=== PATIENT | female | born 1950 | race Caucasian/White ===

== ENCOUNTER 2017-11-11 09:25 | Inpatient (IN) ==
[2017-11-09 10:42] LABS: Appearance,Urine CLEAR; Bilirubin,Urine NEG (NEG); Color,Urine YELLOW; Glucose,Urine (UA) NEGATIVE (NEG); Leukocyte Esterase,Urine NEG /uL (NEG); Protein,Urine NEG (NEG); Urine Blood NEG mg/dL (<0.03); Urobilinogen,Urine NEG (NEG)
[2017-11-09 11:35] LABS: Basophils # (Auto) 0 K/mcL (0.0-0.3); Basophils % (Auto) 0.4 % (0.0-2.0); Eosinophils # (Auto) 0.1 K/mcL (0.0-0.7); Granulocytes % (Auto) 62.1 % (38.0-78.0); Lymphocytes # (Auto) 1.3 K/mcL (1.5-4.8); Lymphocytes % (Auto) 24.5 % (15.5-49.0); Mean Cell Volume 90.9 fL (80.0-100.0); Mean Corpuscular HGB Conc 33.2 g/dL (31.0-36.0); Mean Corpuscular Hemoglobin 30.2 pg (26.0-34.0); Monocytes # (Auto) 0.6 K/mcL (0.1-0.9); Platelet Count 172 K/mcL (140-440)
[2017-11-09 11:59] LABS: Blood Urea Nitrogen 11 mg/dl (8-23)
[~2017-11-11 09:25] MED LIST: 0.9 % SODIUM CHLORIDE 9 ML, KETOROLAC 30 MG, ROPIVACAINE HCL/PF 49.5 ML, EPINEPHrine 0.... IJ SCH; CELECOXIB 200 MG CAPSULE PO SCH; PREGABALIN 75 MG CAPSULE PO SCH; ceFAZolin 1 GM VIAL IV SCH; oxyCODONE 10 MG TAB.ER.12H PO SCH
[2017-11-11] MEDS ORDERED: MEPERIDINE 50 MG/ML INJECTION IM PRN (12:29)
[2017-11-11] MEDS ORDERED: PROMETHAZINE 25 MG/ML VIAL IV PRN ×2 (12:29→15:04)
[2017-11-11] MEDS ORDERED: BENZOCAINE/MENTHOL 1 LOZENGE PO PRN ×2 (12:29→15:24)
[2017-11-11] MEDS ORDERED: PROMETHAZINE 25 MG/ML VIAL IM PRN (12:29)
[2017-11-11] MEDS ORDERED: fentaNYL 100 MCG/2 ML VIAL IV PRN ×2 (12:29→15:04)
[2017-11-11] MEDS ORDERED: NALOXONE HCL 0.4 MG/ML VIAL IV PRN (12:29)
[2017-11-11] MEDS ORDERED: METHOCARBAMOL 1,000 MG/10 ML VIAL IV PRN ×2 (12:29→15:04)
[2017-11-11] MEDS ORDERED: ACETAMINOPHEN 1,000 MG/100 ML BOTTLE IV ONE (12:29)
[2017-11-11] MEDS ORDERED: LACTATED RINGERS 250 ML IV PRN (12:29)
[2017-11-11] MEDS ORDERED: FLUMAZENIL 0.1 MG/ML ML IV PRN (12:29)
[2017-11-11] MEDS ORDERED: IPRATROPIUM/ALBUTEROL 3 ML AMPUL.NEB NEB PRN ×2 (12:29→15:04)
[2017-11-11] MEDS ORDERED: LACTATED RINGERS 1,000 ML IV SCH ×2 (12:30→15:15)
[2017-11-11] MEDS ORDERED: PHENYLEPHRINE 10 MG/ML VIAL IV ONE (13:45)
[2017-11-11] MEDS ORDERED: ROPIVACAINE HCL/PF 30 ML VIAL IJ ONE (13:45)
[2017-11-11] MEDS ORDERED: ONDANSETRON 4 MG/2 ML VIAL IV ONE (13:45)
[2017-11-11] MEDS ORDERED: KETAMINE 100 MG/ML ML IV ONE (13:45)
[2017-11-11] MEDS ORDERED: TRANEXAMIC ACID 1,000 MG/10 ML VIAL IV ONE ×2 (13:45→15:24)
[2017-11-11] MEDS ORDERED: fentaNYL 100 MCG/2 ML VIAL IV ONE (13:45)
[2017-11-11] MEDS ORDERED: MIDAZOLAM 2 MG/2 ML VIAL IV ONE (13:45)
[2017-11-11] MEDS ORDERED: LIDOCAINE HCL/PF 100 MG/5 ML SYRINGE IV ONE (13:45)
[2017-11-11] MEDS ORDERED: PROPOFOL 200 MG/20 ML VIAL IV ONE (13:45)
[2017-11-11] MEDS ORDERED: GLYCOPYRROLATE 0.2 MG/ML VIAL IV ONE (13:45)
[2017-11-11] MEDS ORDERED: ePHEDrine 50 MG/ML AMPUL IV ONE (13:45)
[2017-11-11] MEDS ORDERED: KETOROLAC 15 MG/ML VIAL IV PRN (15:04)
[2017-11-11] MEDS ORDERED: ONDANSETRON 4 MG/2 ML VIAL IV PRN ×2 (15:04→15:24)
[2017-11-11] MEDS ORDERED: MEPERIDINE 25 MG/ML SYRINGE IV PRN (15:04)
[2017-11-11] MEDS ORDERED: BISACODYL 10 MG SUPP.RECT PR PRN (15:24)
[2017-11-11] MEDS ORDERED: POLYETHYLENE GLYCOL 3350 17 GM PACKET PO PRN (15:24)
[2017-11-11] MEDS ORDERED: MAGNESIUM HYDROXIDE 30 ML ORAL.SUSP PO PRN (15:24)
[2017-11-11] MEDS ORDERED: HYDROmorphone 2 MG/ML VIAL IV PRN (15:24)
[2017-11-11] MEDS ORDERED: FLEETS ADULT ENEMA PR PRN (15:24)
--- NOTE | 2017-11-11 15:24 | Brief Operative Note ---
Date of procedure: 11/11/17 Pre-op diagnosis: R knee severe DJD Post-op diagnosis: same Procedure: Right robotic assisted total knee arthroplasty Grafts/Implants: Yes ([place] Triathlon CR 2 femur, 3 tibia, 11 CR insert, 33 patella) Anesthesia: GLMA Findings: severe arthritis Complications: none Surgeon: Jose F Walker Fabrication Manager: Brandon Jimenes Specimens Removed/Pathology: none sent Condition: stable Disposition: PACU
--- NOTE | 2017-11-11 16:37 | Operative Note ---
DATE OF OPERATION: 11/11/2017 PREOPERATIVE DIAGNOSIS: Right knee severe osteoarthritis. POSTOPERATIVE DIAGNOSIS: Right knee severe osteoarthritis. PROCEDURE PERFORMED: Right robotic-assisted total knee arthroplasty placing a Oswaldo Triathlon size 2 cruciate retaining femoral component, size 3 tibial baseplate, 11 mm X3 tibial insert with a 33 mm patellar button. SURGEON: Jose F Walker MD MELTER SUPERVISOR OPEN HEARTH FURNACE: Daniel Jimenes PA-C ANESTHESIA: Spinal plus general. DRAINS: None. SPECIMENS: Bone cuts, which were discarded. BLOOD LOSS: 30 mL POSTOPERATIVE CONDITION: Stable. INDICATIONS FOR SURGERY: This is a 67-year-old female who has had longstanding worsening bilateral knee pain. Radiographs showed severe multi-compartment gghh-[id number] osteoarthritis. FINDINGS AT SURGERY: As above. Post implantation showed good overall limb alignment as well as stability, and patellar tracking. PROCEDURE IN DETAIL: The patient had been seen preoperatively and informed consent had been obtained after discussion of risks and benefits of surgery. Risks including, but not limited to, bleeding; infection, possibly requiring implant removal, prolonged IV antibiotics; injury to nerves, blood vessels other surrounding structures; anesthetic risks; incomplete or no resolution of symptoms; stiffness; swelling, instability, pain; DVT and pulmonary embolus risks; and the possibility of needing further revision surgery. She understood these risks and wished to proceed. Correct operative site was marked. The patient was taken to the operating room. General anesthesia induced after spinal anesthesia was given in preop holding. The right lower extremity was carefully prepped and draped in normal sterile fashion. A time-out was performed verifying patient name, operative site, and plan. Esmarch was used to exsanguinate the extremity and tourniquet was inflated to 350 mmHg. A midline incision was made with a scalpel through skin and subcutaneous tissue and then hemostasis obtained with Bovie cautery. IrriSept was irrigated and then a medial parapatellar arthrotomy made. Subperiosteal exposure was done of the anterior medial tibia. We then placed our femoral and tibial checkpoints. We removed the anterior horns of the menisci and removed fat pad and transected the ACL. Two stab incisions were made over the femur and two over the tibia and bicortical pins placed in each and the arrays connected. We then did our hip center of rotation check, as well as a green probe identifying medial and lateral malleoli of the ankle. We then used the green probe to double check our femoral and tibial checkpoints. Blue probe was used to do our mapping and then osteophytes were removed with a rongeur. We then checked our flexion, extension gaps. Implants were adjusted to give our gaps 17 mm on flexion and extension. Once we liked this, we used the robotic arm assistance to make our bone cuts. Once bone cuts were completed trials were placed. Patellar tracking was good, so we did have a few degrees of hyperextension with the 9 mm insert, so we did go up to 11. We opened implants. Trials were removed. IrriSept was irrigated. Antibiotic cement was mixed. We pulse lavaged with saline and then used the CO2 gun to clean the cancellous bone surfaces and then cemented the tibia followed by femur. Excess cement was removed and the trial insert was placed. The knee was taken into extension. This was held absolutely still. Patellar button was cemented as well. While cement was hardening, we injected pain cocktail as well as removed our checkpoints and our pins from the femur and tibia. Once cement had fully hardened, we removed the trial insert and injected pain cocktail in the pericapsular and subcutaneous tissues and then posterior capsule. We irrigated IrriSept again and impacted 11 insert. We then placed the knee in 45 degrees of flexion, We pulse lavaged with saline. Interrupted #2 FiberWire svliao-jz-cwhmoq were used around the superior quadrant of the patella, #1 Vicryl rpwhzb-an-cizupt around the inferior quadrant, running #1 Vicryl for patellar tendon and quad tendon. Final IrriSept irrigation was done and then Monocryl was used for subcutaneous and elvi for skin. Xeroform sterile dressing were applied. Tourniquet was released. The patient was awakened, extubated, and transferred to recovery in stable condition. ALEXIA:shad Job ID: [id number] Doc ID: [id number] Jose F Walker MD
--- NOTE | 2017-11-11 16:44 | XRay Report ---
CLINICAL INFORMATION: Post-op total knee. COMPARISON: None. FINDINGS: Total knee prostheses is anatomically aligned. No osseous abnormality. Periarticular soft tissue swelling seen. IMPRESSION: Negative Interpreted and Authenticated by: Valdez Herndon 11/11/17
[2017-11-11] MEDS: 0.9 % SODIUM CHLORIDE 1,000 ML IV SCH (17:42)
[2017-11-11] MEDS: KETOROLAC 30 MG/ML VIAL IV SCH ×2 (17:42→23:50)
[2017-11-11] MEDS ORDERED: SENNOSIDES 1 TABLET PO SCH (21:00)
[2017-11-11] MEDS: HYDROcodone/APAP 10/325MG TABLET PO PRN (21:24)
[2017-11-11] MEDS: ASPIRIN 325 MG ENTERIC COATED TABLET PO SCH (21:24)
[2017-11-11] MEDS: DOCUSATE SODIUM 100 MG CAPSULE PO SCH (21:24)
[2017-11-11] MEDS: ceFAZolin 1 GM VIAL IV SCH (21:28)
[2017-11-11] MEDS: 0.9 % SODIUM CHLORIDE 10 ML SYRINGE IV SCH (22:00)
[2017-11-12] MEDS: HYDROcodone/APAP 10/325MG TABLET PO PRN ×2 (02:01→08:37)
[2017-11-12] MEDS: 0.9 % SODIUM CHLORIDE 10 ML SYRINGE IV SCH ×2 (02:14→05:49)
[2017-11-12] MEDS: 0.9 % SODIUM CHLORIDE 1,000 ML IV SCH (03:07)
[2017-11-12] MEDS: KETOROLAC 30 MG/ML VIAL IV SCH ×2 (05:49→12:28)
[2017-11-12] MEDS: ceFAZolin 1 GM VIAL IV SCH (05:50)
[2017-11-12] MEDS ORDERED: PANTOPRAZOLE 40 MG TABLET PO SCH (07:30)
--- NOTE | 2017-11-12 07:49 | Discharge Summary ---
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 Chief Complaint: [] Discharge date: 11/12/17 Hospitalization Hospital course: Pt was admitted for a TKA. Pt underwent the procedure on the day of admission. Pt spent one night on the floor for IV pain meds, IV abx, and PT. Pt will attend out-pt PT, and f/u in 2 weeks. Will use ASA for DVT prophylaxis. Discharge diagnosis: R knee OA Exam - Exam Clean and dry: Yes Weight bearing status: as tolerated Ortho Discharge - TKA - Patient Instructions Diet: Regular Diet Activity: activity as tolerated Total Knee Protocol: For Total Knee: Start ROM ALYCIA with stationary bike or rocking chair. Work on gaining full extension of knee. Posterior dislocation precautions provided. Hip abductor strengthening and gait training instructions provided. Apply Cryocuff as instructed. Dressing Care: May shower in 2 days - Follow Up Plan Disposition: Home, Self-Care Prognosis: Good Rehab Potential: Good Overall status at discharge: patient is progressing back to baseline - Orders For Discharge Prescriptions: Aspirin [Ecotrin] 325 mg PO BID #30 tab.ec HYDROcodone/APAP 10/325MG [[place] 10-325Mg] 1 - 2 tab PO Q4HP PRN #90 tab PRN Reason: Pain Level 3-6 Pending Studies Resuscitation Status Full Code Diet Consistent Carbohydrate Diet Start ThuNov 11 1525 Hydrocodone Bitart/Acetaminophen ([place] 10/325mg) 0 tab PO Q4HP PRN PRN Reason: PAIN LEVEL 3-6 Last Admin: 11/12/17 02:01 Dose: 1 tab Admin: 11/11/17 21:24 Dose: 1 tab Aspirin (Ecotrin) 325 mg PO BID [facility] Last Admin: 11/11/17 21:24 Dose: 325 mg Docusate Sodium (Colace) 100 mg PO BID [facility] Last Admin: 11/11/17 21:24 Dose: 100 mg Ketorolac Tromethamine (Toradol) 30 mg IV Q6 [facility] Stop: 11/13/17 12:01 Last Admin: 11/12/17 05:49 Dose: 30 mg Admin: 11/11/17 23:50 Dose: 30 mg Admin: 11/11/17 17:42 Dose: 30 mg Ondansetron HCl (Zofran) 4 mg IV Q4HP PRN PRN Reason: Nausea And Vomiting Last Admin: 11/11/17 20:33 Dose: 4 mg Pantoprazole Sodium (Protonix) 40 mg PO QAMAC [facility] Last Admin: 11/12/17 06:48 Dose: 40 mg Senna (Senokot) 2 tab PO HS [facility] Last Admin: 11/11/17 21:27 Dose: Not Given Sodium Chloride (Saline Flush) 10 ml IV Q8 [facility] Last Admin: 11/12/17 05:49 Dose: 10 ml Admin: 11/12/17 02:14 Dose: 10 ml Admin: 11/11/17 22:00 Dose: Not Given Shift Summary 11/12/17 05:10 Shift Summary by Maya Amos Pt has slept most of the night. Has been up to the BR w/FWW & SBA; voiding well w/PVRs under 50cc. Has had pain meds twice, controlling her pain well. Biggest complaint tonight has been her chronic acid reflux since she didn't get her Nexium yesterday. She has been sleeping w/the HOB up, which has helped. Initialized on 11/12/17 05:10 - END OF NOTE
[2017-11-12] MEDS: DOCUSATE SODIUM 100 MG CAPSULE PO SCH (08:37)
[2017-11-12] MEDS: ASPIRIN 325 MG ENTERIC COATED TABLET PO SCH (08:37)
== END 2017-11-12 12:35 | disposition home or self-care (01) | DRG 470 ==
LOC: MEDSUR 09:25
PROVIDERS: ADMIT Orthopaedic Surgery; ATTEND Orthopaedic Surgery

== ENCOUNTER 2018-08-25 06:17 | Inpatient (IN) ==
[2018-08-17 12:11] LABS: Appearance,Urine CLEAR; Bilirubin,Urine NEG (NEG); Color,Urine STRAW; Glucose,Urine (UA) NEGATIVE (NEG); Leukocyte Esterase,Urine NEG /uL (NEG); Protein,Urine NEG (NEG); Specific Gravity,Urine 1.005 (1.000-1.035); Urine Blood NEG mg/dL (<0.03); Urobilinogen,Urine NEG (NEG)
[2018-08-17 13:01] LABS: Blood Urea Nitrogen 14 mg/dl (8-23)
[2018-08-17 13:10] LABS: Basophils # (Auto) 0 K/mcL (0.0-0.3); Basophils % (Auto) 0.5 % (0.0-2.0); Eosinophils # (Auto) 0.1 K/mcL (0.0-0.7); Eosinophils % (Auto) 1.5 % (0.0-7.0); Granulocytes % (Auto) 59.5 % (38.0-78.0); Lymphocytes # (Auto) 1.1 K/mcL (1.5-4.8); Lymphocytes % (Auto) 25.6 % (15.5-49.0); Mean Cell Volume 91.5 fL (80.0-100.0); Mean Corpuscular HGB Conc 33.3 g/dL (31.0-36.0); Monocytes # (Auto) 0.5 K/mcL (0.1-0.9); Monocytes % (Auto) 12.9 % (1.0-12.0); Platelet Count 179 K/mcL (140-440); Red Cell Distribution Width 13.4 % (11.5-14.5)
[2018-08-17 13:38] LABS: Estimated Average Glucose(eAG) 103 mg/dL; Hemoglobin A1C 5.2 % HGB (4.0-6.0)
[~2018-08-25 06:17] MED LIST changes: +IPRATROPIUM/ALBUTEROL 3 ML AMPUL.NEB NEB PRN; -ceFAZolin 1 GM VIAL IV SCH; +ceFAZolin 3 GM in DEXTROSE 5% IN WATER 50 ML IV SCH
[2018-08-25] MEDS ORDERED: PROPOFOL 200 MG/20 ML VIAL IV ONE (09:30)
[2018-08-25] MEDS ORDERED: LIDOCAINE HCL/PF 100 MG/5 ML SYRINGE IV ONE (09:30)
[2018-08-25] MEDS ORDERED: ONDANSETRON 4 MG/2 ML VIAL IV ONE (09:30)
[2018-08-25] MEDS ORDERED: DEXAMETHASONE 10 MG/ML VIAL IV ONE (09:30)
[2018-08-25] MEDS ORDERED: fentaNYL 100 MCG/2 ML VIAL IV ONE (09:30)
[2018-08-25] MEDS ORDERED: ROPIVACAINE HCL/PF 20 ML VIAL IJ ONE (09:30)
[2018-08-25] MEDS ORDERED: MIDAZOLAM 5 MG/5 ML VIAL IV ONE (09:30)
[2018-08-25] MEDS ORDERED: TRANEXAMIC ACID 1,000 MG/10 ML VIAL IV ONE (09:30)
[2018-08-25] MEDS ORDERED: ONDANSETRON 4 MG/2 ML VIAL IV PRN ×2 (10:45→11:10)
[2018-08-25] MEDS ORDERED: LACTATED RINGERS 250 ML IV PRN (10:45)
[2018-08-25] MEDS ORDERED: HYDROmorphone 2 MG/ML VIAL IV PRN ×2 (10:45→11:10)
[2018-08-25] MEDS ORDERED: LACTATED RINGERS 1,000 ML IV SCH (10:45)
[2018-08-25] MEDS ORDERED: FLUMAZENIL 0.1 MG/ML ML IV PRN (10:45)
[2018-08-25] MEDS ORDERED: NALOXONE HCL 0.4 MG/ML VIAL IV PRN (10:45)
[2018-08-25] MEDS ORDERED: IPRATROPIUM/ALBUTEROL 3 ML AMPUL.NEB NEB PRN (10:45)
[2018-08-25] MEDS ORDERED: BENZOCAINE/MENTHOL 1 LOZENGE PO PRN ×2 (10:45→11:10)
[2018-08-25] MEDS ORDERED: diphenhydrAMINE 50 MG/ML VIAL IV PRN (10:45)
[2018-08-25] MEDS ORDERED: ACETAMINOPHEN 1,000 MG/100 ML BOTTLE IV ONE (10:45)
[2018-08-25] MEDS ORDERED: PROMETHAZINE 25 MG/ML VIAL IV PRN (10:45)
[2018-08-25] MEDS ORDERED: MEPERIDINE 25 MG/ML SYRINGE IV PRN (10:45)
[2018-08-25] MEDS ORDERED: TRANEXAMIC ACID 1,000 MG/10 ML VIAL IV SCH (11:10)
[2018-08-25] MEDS ORDERED: POLYETHYLENE GLYCOL 3350 17 GM PACKET PO PRN (11:10)
[2018-08-25] MEDS ORDERED: MAGNESIUM HYDROXIDE 30 ML ORAL.SUSP PO PRN (11:10)
[2018-08-25] MEDS ORDERED: FLEETS ADULT ENEMA PR PRN (11:10)
[2018-08-25] MEDS ORDERED: DEXTROSE 31 GM ORAL.SUSP PO PRN (11:10)
[2018-08-25] MEDS ORDERED: BISACODYL 10 MG SUPP.RECT PR PRN (11:10)
[2018-08-25] MEDS ORDERED: DEXTROSE 50% 50 ML VIAL IV PRN (11:10)
--- NOTE | 2018-08-25 11:10 | Brief Operative Note ---
Date of procedure: 08/25/18 Pre-op diagnosis: Left knee severe DJD Post-op diagnosis: same Procedure: Left robotic assisted total knee arthroplasty Grafts/Implants: Yes ([place] Triathlon CR 3 femur, 3 tibia, 11mm insert, 33 patella) Anesthesia: spinal, GLMA Findings: severe arthritis Complications: none Surgeon: Jose F Walker Piece Jobber: Brandon Jimenes Estimated blood loss (cc): 30 Specimens Removed/Pathology: none sent Condition: stable Disposition: PACU
[2018-08-25] MEDS: fentaNYL 100 MCG/2 ML VIAL IV PRN ×2 (11:55→11:58)
--- NOTE | 2018-08-25 13:12 | XRay Report ---
HISTORY: Postop left knee arthroplasty FINDINGS: There is well-positioned total knee prosthesis. There is no fracture or abnormal soft tissue calcification around the joint. IMPRESSION: Well-positioned left knee prosthesis Interpreted and Authenticated by: Jaya Gandara 08/25/18
[2018-08-25] MEDS: KETOROLAC 15 MG/ML VIAL IV SCH ×3 (13:18→23:11)
[2018-08-25] MEDS: 0.9 % SODIUM CHLORIDE 1,000 ML IV SCH ×2 (13:19→23:01)
[2018-08-25] MEDS: INSULIN LISPRO 1 UNIT/0.01 ML UNIT SQ SCH ×3 (13:26→21:38)
--- NOTE | 2018-08-25 13:58 | Operative Note ---
DATE OF OPERATION: 08/25/2018 PREOPERATIVE DIAGNOSIS: Left knee severe osteoarthritis. POSTOPERATIVE DIAGNOSIS: Left knee severe osteoarthritis. PROCEDURE PERFORMED: Left robotic-assisted total knee arthroplasty placing a Oswaldo Triathlon size 3 cruciate retaining femoral component, size 3 tibial baseplate, 33 mm patellar button with an 11 mm tibial insert. SURGEON: Jose F Walker MD PHLEBOTOMY SUPERVISOR: Daniel Jimenes PA-C. The PA's assistance was required for the safe and efficient completion of the entire case. This provider's expertise and technical skill were required throughout the case. The PA assisted with preoperative coordination, intraoperative retraction, wound closure, dressing and splint application, as well as postoperative documentation and care coordination ANESTHESIA: Spinal plus general. DRAINS: None. SPECIMENS: Bone cuts, which were discarded. BLOOD LOSS: 30 mL COMPLICATIONS: None. POSTOPERATIVE CONDITION: Stable. INDICATIONS FOR SURGERY: This is a 68-year-old obese female who has had longstanding left knee pain. Radiographs showed ospe-ty-snno osteoarthritis. She had had a previous right total knee arthroplasty by or, which she was pleased with. FINDINGS AT SURGERY: Multi-compartment osteoarthritis. Post implantation showed good limb alignment, patellar tracking, and joint stability. PROCEDURE IN DETAIL: The patient had been seen preoperatively. Informed consent had been obtained after discussion of risks, benefits of surgery. Risks including, but not limited to, bleeding; infection; injury to nerves, blood vessels, other surrounding structures; anesthetic risks; incomplete or no resolution of symptoms, swelling, stiffness; pain; DVT, pulmonary embolus risks; and the possibility of needing further revision surgery. She understood and wished to proceed. Correct operative site was marked and patient received spinal anesthesia. She was then taken to the operating room and LMA general given. The left lower extremity was carefully prepped and draped in normal sterile fashion and a timeout was performed verifying patient name, operative site, and plan. Esmarch was used to exsanguinate the extremity and tourniquet was inflated to 350 mmHg. A midline incision was made with a scalpel through skin and subcutaneous tissue. IrriSept was irrigated and then a medial parapatellar arthrotomy made. Subperiosteal exposure was done of the anterior medial tibia and the anterior horns of the menisci were removed. ACL was transected. Femoral and tibial checkpoints were placed. Two stab incisions were made over the femur and two over the tibia and bicortical pins placed and the arrays were connected. We did our hip center of rotation check followed by a green probe to the medial and lateral malleoli and double checks of the checkpoints. We then used the blue probe to do our mapping. [place] was then used to remove osteophytes. The flexion, extension gaps were checked with the spoons. Adjustments were made to get 17 mm gaps medial and lateral in both flexion and extension that required 3 degrees of varus of the tibia and 3 degrees of varus on the femur. Once we liked our implant position, we went ahead and used the robotic arm to make our bone cuts. We then prepared the tibia, externally rotating it as bone coverage would allow. A boss reamer and keel punch were used to prepare and then a keeled tibial trial placed. Femur was elevated and a curved osteotome and curet used to remove posterior osteophytes. Femur was then pinned into place. Peg holes were drilled. We trialed a 9 insert. We did go into some hyperextension. She did hyperextend prior to making any cuts. We went ahead and prepared the patella freehand technique. She was 21 mm thick pre-resection and about 12 mm thick post-resection. We sized her to a 33, which was medialized maximally. Holes were drilled and then a trial placed, lateral facetectomy was performed. We checked our patellar tracking, which was good. We went ahead and removed our trial implants. Definitive implants were opened except for the tibial insert. We irrigated IrriSept into the joint while antibiotic cement was mixed. After a minute we pulse lavaged with saline. CO2 gun was used to clean and dry the cancellous bone surfaces and then we cemented the tibia followed by the femur. Excess cement had been removed. The 9 insert trial was placed and the knee was taken into extension and the patellar button was cemented. After all excess cement had been removed, the joint was filled with IrriSept while cement hardened and we injected pain cocktail in the pericapsular and subcutaneous tissues. Checkpoints and pins were removed for the arrays. Due to her hyperextension we chose to upsize to an 11 insert. We pulse lavaged with saline and then 11 insert was opened. The pain cocktail was injected into the posterior medial capsule and then the insert was impacted. There was some challenge getting it in but once it was in, it did improve her hyperextension and she still had good deep flexion. We went ahead and irrigated with IrriSept, after a minute pulse lavaged with saline and then a #2 FiberWire incafx-ff-mvhwv was used around the superior quadrant of the patella and interrupted #1 Vicryl oeikgh-uq-nopwxj around the inferior quadrant, running #1 Vicryl was used for patellar tendon and quad tendon. Another IrriSept irrigation was done, after a minute more pulse lavage and then Vicryl was used to close some of the deep fat layer proximally and then a 2-0 Monocryl used for subcutaneous and elvi for skin. Xeroform sterile dressings were applied. Tourniquet was released. The patient was awakened, extubated, and transferred to recovery in stable condition. BJB:shad Job ID: [id number] Doc ID: [id number] Jose F Walker MD
[2018-08-25] MEDS: 0.9 % SODIUM CHLORIDE 10 ML SYRINGE IV SCH ×2 (14:54→21:27)
[2018-08-25] MEDS: HYDROcodone/APAP 10/325MG TABLET PO PRN ×2 (17:19→21:38)
[2018-08-25] MEDS: ceFAZolin 1 GM VIAL IV SCH ×2 (17:38→23:12)
[2018-08-25] MEDS ORDERED: SENNOSIDES 1 TABLET PO SCH (21:00)
[2018-08-25] MEDS: ASPIRIN 325 MG ENTERIC COATED TABLET PO SCH (21:19)
[2018-08-25] MEDS: DOCUSATE SODIUM 100 MG CAPSULE PO SCH (21:19)
[2018-08-26] MEDS: 0.9 % SODIUM CHLORIDE 10 ML SYRINGE IV SCH (06:03)
[2018-08-26] MEDS: KETOROLAC 15 MG/ML VIAL IV SCH (06:03)
[2018-08-26] MEDS: INSULIN LISPRO 1 UNIT/0.01 ML UNIT SQ SCH (07:29)
[2018-08-26] MEDS ORDERED: PANTOPRAZOLE 40 MG TABLET PO SCH (07:30)
[2018-08-26] MEDS: DOCUSATE SODIUM 100 MG CAPSULE PO SCH (07:43)
[2018-08-26] MEDS: ASPIRIN 325 MG ENTERIC COATED TABLET PO SCH (07:43)
--- NOTE | 2018-08-26 07:48 | Discharge Summary ---
Providers - Providers Patient information: Note initiated : 08/26/18 at 7:43 am Service Date, if different from initiated Date: [] Patient: Raf Garza 68 y/o F admitted on 08/25/18 for Left Total Knee Arthroplasty. Chief Complaint: [] Discharge date: 08/26/18 Hospitalization Hospital course: Pt was admitted for a L TKA. Pt was admitted on the day of procedure and dischraged on post-op day 1. Pt spent one night on the floor for IV pain meds, I V abx, and PT. Will f/u at [facility] in 2 weeks. Will take ASA 81mg bid for DVT prophylaxis. Discharge diagnosis: L knee OA Exam - Exam Clean and dry: Yes Weight bearing status: as tolerated Ortho Discharge - TKA - Patient Instructions Diet: Regular Diet Activity: activity as tolerated Total Knee Protocol: For Total Knee: Start ROM ALYCIA with stationary bike or rocking chair. Work on gaining full extension of knee. Posterior dislocation precautions provided. Hip abductor strengthening and gait training instructions provided. Apply Cryocuff as instructed. Dressing Care: May shower in 2 days - Follow Up Plan Follow Up Appointments: Jose F Walker MD [Physician] - 09/09/18 10:00 am Disposition: Home, Self-Care Prognosis: Good Rehab Potential: Good Overall status at discharge: patient is progressing back to baseline - Orders For Discharge Prescriptions: Aspirin [Adult Low Dose Aspirin EC] 1 tab PO BID 15 Days tablet. HYDROcodone/APAP 10/325MG [[place] 10-325Mg] 1 - 2 tab PO Q4HP PRN #90 tab PRN Reason: Pain Level 3-6 Pending Studies Resuscitation Status Full Code Diet Consistent Carbohydrate Diet Start ThuAugust 25 1113 Hydrocodone Bitart/Acetaminophen ([place] 10/325mg) 0 tab PO Q4HP PRN PRN Reason: PAIN LEVEL 3-6 Last Admin: 08/25/18 21:38 Dose: 1 tab Documented by: Admin: 08/25/18 17:19 Dose: 2 tab Documented by: JULIO Aspirin (Ecotrin) 325 mg PO BID [facility] Last Admin: 08/25/18 21:19 Dose: 325 mg Documented by: GRAEME Diagnostic Test (Pha) (Accu-Chek) 1 each FS ACHS [facility] Last Admin: 08/26/18 07:29 Dose: 1 each Documented by: Admin: 08/25/18 21:26 Dose: 1 each Documented by: Admin: 08/25/18 17:19 Dose: 1 each Documented by: Admin: 08/25/18 13:20 Dose: 1 each Documented by: JULIO Docusate Sodium (Colace) 100 mg PO BID [facility] Last Admin: 08/25/18 21:19 Dose: 100 mg Documented by: GRAEME Insulin Human Lispro (Humalog) 0 unit SQ ACHS [facility]; Protocol Last Admin: 08/26/18 07:29 Dose: Not Given Documented by: Admin: 08/25/18 21:38 Dose: 2 units Documented by: Admin: 08/25/18 17:39 Dose: 2 units Documented by: Admin: 08/25/18 13:26 Dose: Not Given Documented by: JULIO Ketorolac Tromethamine (Toradol) 15 mg IV Q6 [facility] Stop: 08/27/18 06:01 Last Admin: 08/26/18 06:03 Dose: 15 mg Documented by: Admin: 08/25/18 23:11 Dose: 15 mg Documented by: Admin: 08/25/18 17:38 Dose: 15 mg Documented by: Admin: 08/25/18 13:18 Dose: 15 mg Documented by: JULIO Senna (Senokot) 2 tab PO HS [facility] Last Admin: 08/25/18 21:19 Dose: 2 tab Documented by: GRAEME Sodium Chloride (Saline Flush) 10 ml IV Q8 [facility] Last Admin: 08/26/18 06:03 Dose: 10 ml Documented by: Admin: 08/25/18 21:27 Dose: Not Given Documented by: Admin: 08/25/18 14:54 Dose: Not Given Documented by: JULIO Shift Summary 08/25/18 17:01 Shift Summary by Devon Gallardo Patient is alert and oriented times four. Had left total knee athroplasty done. Patient has a foot pump on and cryocuff. Patient had ketorolac and norco for pain. Pleasant and cooperative. up with two assist with a walker to the bedside commode. Patient had difficulty bearing weight on the effected side. Has IV on left arm infusing 100mls of normal saline. Glucose this morning was 142, insulin was not given, patient had not had anything to eat. Bladder scan patient, had 288mls at 1700. Patient evening blood sugar was 142. One unit of insulin given for coverage. Initialized on 08/25/18 17:01 - END OF NOTE
[2018-08-26] MEDS: HYDROcodone/APAP 10/325MG TABLET PO PRN (09:46)
== END 2018-08-26 10:20 | disposition home or self-care (01) | DRG 470 ==
LOC: MEDSUR 06:17
PROVIDERS: ADMIT Orthopaedic Surgery; ATTEND Orthopaedic Surgery